=== PATIENT | female | born 1985 | race Two or more races ===

== ENCOUNTER 2023-01-11 05:26 | Day surgery (SDC) | payer OTHER | END 2023-01-11 10:00 | disposition home or self-care (01) | LOC: AMB-ENDOS 05:26 | PROVIDERS: ATTEND Surgery | DX: K21.9 Gastro-esophageal reflux disease without esophagitis (principal); K29.00 Acute gastritis without bleeding; Z20.822 Contact with and (suspected) exposure to COVID-19; E66.01 Morbid (severe) obesity due to excess calories; G47.30 Sleep apnea, unspecified ==